=== PATIENT | female | born 1955 | race African-American/Black ===

== ENCOUNTER 2017-04-20 00:07 | Emergency (ER) | payer BC ==
[~2017-04-20] VITALS: Ht 165.1 cm; Wt 92.0 kg
[~2017-04-20 00:07] MED LIST: AZITHROMYCIN250 MG PO; CHILD ASPIRIN81 M1 PO; EXPECTORANT DM PO; MUCINEX600 MG PO; PANTOPRAZOLE SO40 MG PO; PRILOSEC20 MG PO; SYNTHROID50 MCG PO; SYNTHROID75 MCG PO; ZANTAC150 MG PO
[2017-04-20 00:30] LABS: HEMATOCRIT 38.7 % (36.0-46.0); HEMOGLOBIN 12.4 G/DL (11.9-15.5); MCH 29.5 PG (29.0-34.0); MCV 92.1 FL (83-99); PLATELET COUNT 198 K/uL (156-360); RBC DIS.WIDTH-CV 12.4 % (11.8-14.6); RBC DIS.WIDTH-SD 42.1 % (39-53); WHITE BLOOD COUNT 9.2 K/uL (4.1-10.2)
[2017-04-20 00:43] LABS: CHLORIDE 105 mEq/L (99-109); POTASSIUM 3.7 mEq/L (3.7-5.4); SODIUM 141 mEq/L (136-147)
[2017-04-20 00:45] LABS: GLUCOSE 154 mg/dL (70-99)
[2017-04-20 00:48] LABS: CREATININE 0.9 mg/dL (0.6-1.3); GFR ESTIMATE (CALCULATED) > 59 mL/min/
[2017-04-20 00:49] LABS: UREA NITROGEN (BUN) 14 mg/dL (9-23)
[2017-04-20 00:53] LABS: TROP-I INTERPRETATION NEGATIVE; TROPONIN-I < 0.01 ng/mL (0.0-0.30)
[2017-04-20 03:29] LABS: TROP-I INTERPRETATION NEGATIVE; TROPONIN-I < 0.01 ng/mL (0.0-0.30)
[2017-04-20 04:02] VITALS: BP 122/65
== END 2017-04-20 04:03 | disposition home or self-care (01) ==
LOC: EME 00:07
PROVIDERS: Emergency Medicine
DX: R00.2 Palpitations (principal); I49.3 Ventricular premature depolarization; R94.31 Abnormal electrocardiogram [ECG] [EKG]; E03.9 Hypothyroidism, unspecified; K21.9 Gastro-esophageal reflux disease without esophagitis; Z79.82 Long term (current) use of aspirin; Z88.5 Allergy status to narcotic agent; Z88.2 Allergy status to sulfonamides
CPT/HCPCS: 71046; 80048; 84484; 85027; 85379; 93005; 99281; 99284